=== PATIENT | female | born 1940 | race Caucasian/White ===

== ENCOUNTER → 2023-12-01 09:50 | Outpatient (REF) | payer OTHER, SELFPAY | LOC: HWRAD 09:50 | PROVIDERS: ATTENDING PHYSICIAN Specialist; FAMILY PHYSICIAN Family Medicine | DX: K76.89 Other specified diseases of liver (principal) | CPT/HCPCS: 76700 ==

== ENCOUNTER → 2024-06-08 11:03 | Outpatient (REF) | payer OTHER, SELFPAY | LOC: HWRAD 11:03 | PROVIDERS: ATTENDING PHYSICIAN Family Medicine; REFERRING PHYSICIAN Specialist | DX: K76.0 Fatty (change of) liver, not elsewhere classified (principal); K76.89 Other specified diseases of liver; R53.1 Weakness; R14.0 Abdominal distension (gaseous) | CPT/HCPCS: 74177; Q9967 ==

== ENCOUNTER → 2024-08-28 14:29 | Outpatient (REF) | payer OTHER, SELFPAY | LOC: HWWDC 14:29 | PROVIDERS: ATTENDING PHYSICIAN Family Medicine | DX: Z12.31 Encounter for screening mammogram for malignant neoplasm of breast (principal) | CPT/HCPCS: 77063; 77067 ==

== ENCOUNTER 2025-01-03 12:12 | Emergency (ER) | payer OTHER, SELFPAY ==
[2025-01-03 12:14] VITALS: BP 195/100
[2025-01-03 12:16] VITALS: BP 195/100
[2025-01-03 12:22] VITALS: BP 175/100
[2025-01-03 12:43] LABS: % Basophils 0.6 % (0-2); % Eosinophils 7.1 % (0-6); % Immature Granulocytes 0.9 % (0-0.5); % Lymphocytes 19.6 % (20.5-51.1); % Monocytes 7.7 % (1.7-9.3); % Neutrophils 64.1 % (42.2-75.2); Absolute Basophils 0.1 10^3/uL (0-0.2); Absolute Eosinophils 0.6 10^3/uL (0-0.7); Absolute Immature Granulocytes 0.1 10^3/uL (0-0.05); Absolute Lymphocytes 1.6 10^3/uL (1.2-3.4); Absolute Monocytes 0.6 10^3/uL (0.1-0.6); Absolute Neutrophils 5.2 10^3/uL (1.4-6.5); Hematocrit 47.1 % (37.0-47.0); Hemoglobin 15.7 g/dL (12.0-16.0); Mean Corp Hgb Conc. 33.3 g/dL (33.0-37.0); Mean Corpuscular Hgb 28.5 pg (27.0-31.0); Mean Corpuscular Volume 85.6 fL (81.0-99.0); Mean Platelet Volume 8.9 fL (7.4-10.4); Nucleated Red Blood Cells % 0 %; Platelet Count 259 10^3/uL (130-400); Red Cell Dist. Width 13.7 % (11.5-14.5); White Blood Cell Count 8.1 10^3/uL (4.8-10.8)
--- NOTE | 2025-01-03 12:46 | ED.GENMED ---
History of Present Illness
General
Chief Complaint: Change in Mental Status
Time Seen by Provider: 01/03/25 12:45
History of Present Illness
History of Present Illness:
TIME OF INITIAL ENCOUNTER: 12:45 PM
HPI: I spoke to the son for the majority of the history at bedside. The patient does have some baseline confusion at times. She did have an issue with blepharitis and had been on some treatment and then followed up with ophthalmology at [facility]
eye and was placed on doxycycline. She was on an extended course of doxycycline and developed a rash. She was also concerned because she needs a shoulder replacement. Son feels that she has a component of anxiety related to medical issues. Blood
pressure was also noted to be elevated by her grandson who is an EMT�she called her grandson to evaluate her as he was working as an EMT at [employer] today. Son states that her blood pressure is normally around 170 systolic and that is where her
primary wanted.
EXAM:
GENERAL: Well appearing in no distress
HEENT: Very dry oral mucosa
CARDIOVASCULAR: No murmurs, normal heart rate, regular rhythm, No chest wall tenderness
PULMONARY: No respiratory distress, breath sounds are clear and equal
ABDOMEN: Soft with no peritoneal signs, no tenderness
NEUROLOGIC: Excellent strength all extremities, no coordination deficits, she stumbled naming the month (initially said November then quickly changed to December), knows she is at [facility]
PSYCHIATRIC: Appropriate mental status, normal insight and judgement, she understands why she is here
EXTREMITIES: Nontender, no edema, moves all extremities equally
SKIN: No rash, no lesions
NUMBER AND COMPLEXITY OF PROBLEMS ADDRESSED AT THE ENCOUNTER
� Chronic conditions affecting care: Chronic bronchitis, high blood pressure
� Acute Exacerbation and/or Progression of Chronic Illness: This is an acute problem
� Differential Diagnosis includes: Progressive functional decline, anxiety/depression,
AMOUNT AND/OR COMPLEXITY OF DATA TO BE REVIEWED AND ANALYZED
� I performed an independent evaluation of and my interpretation is:
EKG: Sinus 92, left axis deviation, LVH with associated ST abnormality
CT: CAT scan of the brain shows no acute abnormality however chronic severe small vessel ischemic disease suggested.
X-rays:
Laboratory Studies: White count and hemoglobin are normal, chemistries unremarkable, urinalysis shows no sign of urinary tract infection.
Other:
� Review of other/old records: I reviewed records, the patient had colonoscopy in 2018
� Clinical information was obtained by an independent historian: I spoke to the son at bedside
� Prescriptions/Medications Considered but not given:
� Further testing considered but not performed:
RISK OF COMPLICATIONS AND/OR MORBIDITY OR MORTALITY OF PATIENT MANAGEMENT
� Social determinants of health affecting care: Lives alone at home
� Discussion with other providers:
� Escalation of care including admission/observation vs risk of discharge considered: Initial blood work unremarkable. Urinalysis was obtained and nurse tells me that during the cath urine she did note that she drained 550 mL of
urine. Her renal function is normal. She was given IV fluids as she appeared dehydrated.
ANY OTHER UPDATES:
2:50 PM: I reassessed patient. Patient feels about the same and son notes no significant change after IV fluids. Son does think that maybe she did mix up her pills recently and may not been taking her Effexor. We talked about the possibility of
withdrawal from Effexor as contributing to some of her symptoms. We also talked about PMD follow-up and talking about assisted living. I am also given the patient contact information for neurologist as well. She continues to say that she feels
'strange' but does not have any other specific complaints.
Past History
Past History
ED Past Medical History: Asthma, HTN and Other (Chronic bronchitis)
ED Past Surgical History: Gynecological
Social History
Tobacco: Non-smoker
Alcohol: Occasional
Family History
Family History: Negative Diabetes, Hypertension or CAD
Phy Exam
Physical Exam
Physical Exam:
See HPI
Course
Orders/Labs/Results
Orders:
Orders
01/03/25 12:16
Electrocardiogram (*1) Urgent
Reason for Study: Chest Pain
EKG- Treatment ONCE
IV Insert/Care/Rem.- Treatment PRN
01/03/25 12:24
Complete Blood Count/With Diff Urgent
Comprehensive Metabolic Panel Urgent
01/03/25 12:56
Straight cath- Treatment ONCE
0.9% Sodium Chloride 1000 ml [Nss] 1,000 ml IV BOLUS
01/03/25 13:05
CT Head W/o Iv Contrast Urgent
Comment:
Reason For Exam: alt ms confusion
01/03/25 13:14
Urinalysis Reflex To Culture Urgent
Date Specimen was Collected: 01/03/25
Time Specimen was Collected: 13:08
Urine Microscopic Reflex Cult Urgent
Abnormal Lab Results
01/03/25 01/03/25
12:24 13:14
RBC 5.50 H 10^6/uL
(4.20-5.40)
Hct 47.1 H %
(37.0-47.0)
Abs Immat Gran (auto) 0.1 H 10^3/uL
(0-0.05)
Immature Gran % 0.9 H %
(0-0.5)
Lymphocytes % 19.6 L %
(20.5-51.1)
Eosinophils % 7.1 H %
(0-6)
Glucose 117 H mg/dl
(70-99)
AST 38 H U/L
(14-36)
ALT 41 H U/L
(0-35)
Total Protein 8.3 H g/dl
(6.3-8.2)
Albumin 5.2 H g/dl
(3.5-5.0)
Ur Occult Blood Reflex 1+ A
(Negative)
01/03/25 12:24
03/19/25 12:24
Vital Signs
Initial and Last Documented VS:
Initial Vital Signs
BP
195/100
01/03/25 12:14
Last Documented Vital Signs
Temp Pulse Resp BP Pulse Ox
37.1 C 90 21 175/87 98
01/03/25 12:16 01/03/25 13:00 01/03/25 13:00 01/03/25 13:00 01/03/25 13:00
*Critical Care Note
Total Time (30-74mins, 75-104mins- exclusive of procedures): Not Applicable
ED Attending Note
-
Portions of this chart may have been created with voice recognition software.� Occasional wrong word or��sound alike� substitutions may have occurred due to the inherent limitations of voice recognition software.
Discharge Plan
Departure
Prescriptions:
No Action
amlodipine 5 MG tablet
5 mg PO DAILY
aspirin-caffeine [Anacin Maximum Strength] 1 EACH tablet
2 ea PO TIDPRN PRN (Reason: MILD PAIN/HEADACHE)
ranitidine HCl [Zantac] 150 MG tablet
150 mg PO Q48H
Patient Comments:
01/14/18: ALTERNATES EVERY OTHER MORNING WITH OMEPRAZOLE
omeprazole 20 MG capsule,delayed release(DR/EC)
20 mg PO Q48H
Patient Comments:
01/14/18: ALTERNATES EVERY OTHER MORNING WITH ZANTAC
fluticasone propionate 1 SPRAY spray,suspension
1 spray intranasal BID
beclomethasone dipropionate [Qvar] 8.7 GM aerosol
1 puff IH BID
escitalopram oxalate 20 MG tablet
20 mg PO DAILY
polyvinyl alcohol-povidon(PF) [Refresh Classic (PF)] 10 DROPS dropperette
1 drops BOTH EYES QIDPRN PRN (Reason: DRY EYE)
calcium carbonate-vitamin D3 [Oyster Shell Calcium-Vit D3] 500 MG tablet
1 tab PO DAILY
psyllium husk (aspartame) [Metamucil Fiber Singles] 1 PACKET powder in packet
1 packet PO DAILY
ipratropium-albuterol 3 ML solution for nebulization
3 ml inhalation R QID Qty: 1 0RF
ipratropium-albuterol 3 ML solution for nebulization
3 ml inhalation R Q4HPRN PRN (Reason: SOB) Qty: 1 0RF
prednisone 20 MG tablet
10 mg PO DAILY Qty: 30 0RF
Rx Instructions:
40 mg for 2 days, 30mg for 3 days , 20 mg for 3 days , 10 mg for 3 days
oseltamivir 75 MG capsule
75 mg PO BID Qty: 6 0RF
guaifenesin [Mucus Relief ER] 600 MG tablet extended release 12hr
600 mg PO Q12 PRN (Reason: cough) Qty: 20 0RF
Referrals:
Zully Stephens DO [Family Provider] -
Interventions
Interventions:
*Risk Screen - Suicide Last Done: 01/03/25 12:16
*General Assessment Last Done: 01/03/25 12:16
*Neglect/Abuse Screening Last Done: 01/03/25 12:16
*ED COVID-19 Vaccine History Last Done: 01/03/25 14:10
ED- Neurological Assessment Last Done: 01/03/25 14:10
Discharge Date and Time
Print Language: LATVIAN
[2025-01-03 12:57] LABS: ALT (SGPT) 41 U/L (0-35); AST (SGOT) 38 U/L (14-36); Albumin 5.2 g/dl (3.5-5.0); Alkaline Phosphatase 89 U/L (38-126); Blood Urea Nitrogen 17 mg/dl (7-17); Calcium 10.2 mg/dl (8.4-10.2); Carbon Dioxide 28 mmol/L (22-30); Chloride 100 mmol/L (98-107); Estimated Creatinine Clearance 75 ml/min; Glucose 117 mg/dl (70-99); Potassium 3.8 mmol/L (3.5-5.1); Sodium 141 mmol/L (135-145); Total Bilirubin 0.7 mg/dl (0.2-1.3); Total Protein 8.3 g/dl (6.3-8.2); eGFR > 60.00
[2025-01-03 13:00] VITALS: BP 175/87
[2025-01-03] MEDS: NSS 1000 IV (13:18)
[2025-01-03 13:48] LABS: Urine Albumin Negative (Neg - Trace); Urine Bilirubin Negative (Negative); Urine Character Clear (Clear); Urine Color Yellow; Urine Glucose Negative (Negative); Urine Ketone Negative (Negative); Urine Leukocyte Negative (Negative); Urine Nitrite Negative (Negative); Urine Occult Blood 1+ (Negative); Urine Urobilinogen Negative (Neg - 1+)
[2025-01-03 14:22] VITALS: BP 194/98
[2025-01-03 14:25] LABS: Urine Amorphous Seen; Urine Squamous Cell 0-2 /LPF (Few)
[2025-01-03 14:26] LABS: Urine Red Blood Cell 0-2 /HPF (0-2); Urine White Cell 0-2 /HPF (0-5)
[2025-01-03 15:00] VITALS: BP 142/105
== END 2025-01-03 15:33 | disposition home or self-care (01) ==
LOC: EMR 12:12
PROVIDERS: Emergency Medicine; EMERGENCY PHYSICIAN Emergency Medicine; FAMILY PHYSICIAN Family Medicine
DX: R41.0 Disorientation, unspecified (principal); J45.909 Unspecified asthma, uncomplicated; J42 Unspecified chronic bronchitis; I10 Essential (primary) hypertension; Z79.899 Other long term (current) drug therapy
CPT/HCPCS: 99284; 96360; 70450; 80053; 81003; 81015; 85025; 93005

== ENCOUNTER → 2025-01-08 11:17 | Outpatient (REF) | payer OTHER, SELFPAY | LOC: HWRAD 11:17 | PROVIDERS: ATTENDING PHYSICIAN Family Medicine | DX: M54.10 Radiculopathy, site unspecified (principal) | CPT/HCPCS: 72110 ==

== ENCOUNTER → 2025-04-26 13:00 | Outpatient (REF) | payer OTHER, SELFPAY | LOC: MRI 3T 13:00 | PROVIDERS: ATTENDING PHYSICIAN Family Medicine | DX: M51.362 Other intervertebral disc degeneration, lumbar region with discogenic back pain and lower extremity pain (principal) | CPT/HCPCS: 72148 ==

== ENCOUNTER → 2025-05-21 12:16 | Outpatient (REF) | payer OTHER, SELFPAY | LOC: RAD 12:16 | PROVIDERS: ATTENDING PHYSICIAN Nurse Practitioner Family; FAMILY PHYSICIAN Family Medicine | DX: R60.0 Localized edema (principal) | CPT/HCPCS: 93971 ==

== ENCOUNTER → 2025-09-25 14:39 | Outpatient (REF) | payer OTHER, SELFPAY | LOC: HWWDC 14:39 | PROVIDERS: ATTENDING PHYSICIAN Family Medicine | DX: Z12.31 Encounter for screening mammogram for malignant neoplasm of breast (principal) | CPT/HCPCS: 77063; 77067 ==